=== PATIENT | female | born 2000 | race Caucasian/White ===

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

== ENCOUNTER → 2022-03-15 | Outpatient (CLI) | payer BC | LOC: MC.RAD 12:46 | DX: N64.4 Mastodynia (principal) ==